=== PATIENT | female | born 1960 | race Caucasian/White ===

== ENCOUNTER 2017-05-05 10:25 | Emergency (ER) | payer OTHER ==
[~2017-05-05] VITALS: Ht 170.2 cm; Wt 77.6 kg
[~2017-05-05 10:25] MED LIST: NAPROXEN500 MG PO; NORCO 5/3251 TABLET PO; ZOFRAN ODT4 MG PO
[2017-05-05 10:44] VITALS: BP 141/75
[2017-05-05] MEDS ORDERED: FLEXERIL10 MG PO (12:41)
== END 2017-05-05 13:51 | disposition home or self-care (01) ==
LOC: EME 10:25
DX: S16.1XXA Strain of muscle, fascia and tendon at neck level, initial encounter (principal); V43.52XA Car driver injured in collision with other type car in traffic accident, initial encounter; Y92.410 Unspecified street and highway as the place of occurrence of the external cause; Z88.5 Allergy status to narcotic agent
CPT/HCPCS: 99281; 99283